=== PATIENT | female | born 1970 | race Caucasian/White ===

== ENCOUNTER → 2016-06-20 | Outpatient (CLI) | payer OTHER ==
[~2016-06-20] MED LIST: ACET325 PO; DIAZ5TAB PO; IBUP800 PO; PERC5TAB12 PO
--- NOTE | 2016-06-20 09:33 | RADRPT ---
EXAM DATE/TIME: 06/20/2016 08:28 [facility] COMPARISON: No previous studies available for comparison. INDICATIONS : Left knee pain for 3 weeks. MEDICAL HISTORY : None. SURGICAL HISTORY : None. ENCOUNTER: Initial ACUITY: 3 weeks PAIN SCORE: 4/10 LOCATION: Left anterior knee. FINDINGS: Four view examination of the left knee demonstrates no evidence of fracture or dislocation. Bony min eralization is normal. The articular surfaces are intact. The suprapatellar soft tissues have a nor mal configuration. CONCLUSION: Negative for fracture or dislocation. Followup in 7-10 days is suggested if symptoms persist. Zion Mccoy MD FACR on June 20, 2016 at 9:31 Board Certified Radiologist. This report was verified electronically.
== END ==
LOC: HRAD 08:05
PROVIDERS: ATTEND Family Medicine
DX: M25.562 Pain in left knee (principal)
CPT/HCPCS: 73564

== ENCOUNTER → 2016-06-29 | Outpatient (CLI) | payer OTHER ==
--- NOTE | 2016-06-29 13:05 | RADRPT ---
EXAM DATE/TIME: 06/29/2016 12:40 [facility] COMPARISON: No previous studies available for comparison. INDICATIONS : Left knee pain, fall. RADIATION DOSE: 7.29 CTDIvol (mGy) MEDICAL HISTORY : None SURGICAL HISTORY : None. ENCOUNTER: Initial ACUITY: 1 day PAIN SCALE: 5/10 LOCATION: Left Knee TECHNIQUE: Volumetric scanning of the knee was performed. Using automated exposure control and adjustment of th e mA and/or kV according to patient size, radiation dose was kept as low as reasonably achievable to obtain optimal diagnostic quality images. FINDINGS: There is no evidence for joint effusion. The distal femur, proximal tibia and fibula are intact. The patella is intact. There is reasonable visualization of the anterior and posterior cruciates which appear intact. CONCLUSION: Negative for fracture or joint effusion. MRI could be used to exclude meniscal injur y. Zion Mccoy MD FACR on June 29, 2016 at 13:01 Board Certified Radiologist. This report was verified electronically.
== END ==
LOC: HRAD 12:03
PROVIDERS: ATTEND Family Medicine
DX: S89.92XA Unspecified injury of left lower leg, initial encounter (principal); W19.XXXA Unspecified fall, initial encounter; M25.562 Pain in left knee
CPT/HCPCS: 73700

== ENCOUNTER → 2016-07-10 | Outpatient (CLI) | payer OTHER ==
--- NOTE | 2016-07-10 09:17 | RADRPT ---
EXAM DATE/TIME: 07/10/2016 08:52 [facility] COMPARISON: No previous studies available for comparison. INDICATIONS : Right foot/great toe pain after dropping garden pola on it. MEDICAL HISTORY : None. SURGICAL HISTORY : None. ENCOUNTER: Initial ACUITY: 4 - 6 days PAIN SCORE: 10/10 LOCATION: Right dorsal foot/great toe FINDINGS: Three view examination of the right foot demonstrates very minimal lucency along the cortex of the ba se of the distal phalanx great toe. Soft tissue swelling. The calcaneus is intact. Bony mineralizat ion is normal. CONCLUSION: 1. Nondisplaced tiny fracture along the base of the distal phalanx great toe only along the medial co rtex. Edd Meneses MD on July 10, 2016 at 9:12 Board Certified Radiologist. This report was verified electronically.
== END ==
LOC: HRAD 08:28
DX: S99.921A Unspecified injury of right foot, initial encounter (principal); X58.XXXA Exposure to other specified factors, initial encounter
CPT/HCPCS: 73630

== ENCOUNTER → 2017-02-05 | Outpatient (CLI) | payer OTHER ==
--- NOTE | 2017-02-05 09:56 | RADRPT ---
EXAM DATE/TIME: 02/05/2017 08:41 [facility] COMPARISON: US GUIDED NEEDLE BIOPSY LEFT, November 09, 2014, 14:03. INDICATIONS : Thyroid nodule. MEDICAL HISTORY : Fibroids. Thyroid nodule. SURGICAL HISTORY : Adenoidectomy. ENCOUNTER: Initial ACUITY: >1 year PAIN SCORE: 0/10 LOCATION: Bilateral neck MEASUREMENTS: RIGHT LOBE: 4.5 x 1.7 x 1.6 cm LEFT LOBE: 4.7 x 1.5 x 1.9 cm FINDINGS: RIGHT LOBE: There is mildly heterogeneous echotexture. The examination demonstrates a 0.5 x 0.3 x 0.5 cm solid no dule in the lower pole the gland. The vascularity is within normal limits. LEFT LOBE: There is mildly heterogeneous echotexture. The examination demonstrates a 1.1 x 1.3 x 1.6 cm nodule i n the lower pole the gland. ISTHMUS: The exam demonstrates a 0.5 x 0.3 x 0.4 cm solid nodule within the isthmus. CONCLUSION: 1. There are scattered solid nodule seen in the thyroid as described above. The largest nodule identi fied is in the mid aspect of the left lobe of the gland and measures 1.1 x 1.3 x 1.6 cm. Pietro Mccoy MD on February 05, 2017 at 9:52 Board Certified Radiologist. This report was verified electronically.
== END ==
LOC: HRAD 08:32
PROVIDERS: ATTEND Family Medicine
DX: E04.1 Nontoxic single thyroid nodule (principal)
CPT/HCPCS: 76536

== ENCOUNTER 2017-04-11 12:27 | Day surgery (SDC) | payer OTHER ==
[2017-04-11 13:13] VITALS: BP 162/82; PULSE 90; RESP 14; TEMP 97.6; O2SAT 98
[2017-04-11 14:05] VITALS: BP 149/98; PULSE 76; RESP 20; TEMP 97.6; O2SAT 98
--- NOTE | 2017-04-11 14:32 | PD.RAD ---
Post CT Procedure Prog Note Pre Procedure Diagnosis: (1) Recurrent pleural effusion on right Post Procedure Diagnosis: (1) Recurrent pleural effusion on right Procedure Date: Apr 11, 2017 Supervising Radiologist: Bret Merritt JR Anesthesia: Conscious Sedation Plan of Activity Patient to Unit: ROPU Patient Condition: Good See PACS Report for procedural detail/treatment Drainage Procedure Procedure 1 Imaging Guidance: CT Side: Right Procedure Type: Thoracentesis Fluid Description: Clear Findings: Successful right thoracentesis with 200 mL of straw-colored fluid obtained. No PTX on post images. Minimal residual fluid. Jr. René,Bret Mahan MD Apr 11, 2017 14:32
[2017-04-11 15:05] VITALS: BP 145/91; PULSE 67; RESP 20; TEMP 98.3; O2SAT 98
[2017-04-11 15:20] VITALS: BP 141/82; PULSE 73; RESP 16; O2SAT 97
[2017-04-11] MEDS ORDERED: LIDOCAINE HCL 1% 20 ML VIAL ONE ×2 (15:47)
--- NOTE | 2017-04-11 16:34 | RADRPT ---
EXAM DATE/TIME: 04/11/2017 12:48 [facility] COMPARISON: No previous studies available for comparison. EXTERNAL COMPARISON: [facility], US THYROID, Apr 09 2016. [facility], US THYROID, May 19, 2015. [facility], US THYROID, October 29, 2014. INDICATIONS : Left thyroid nodule. MEDICAL HISTORY : Anxiety. Uterine prolapse. Lipoid metabol disease. Hyperlipidemia. Thyroid nodule. SURGICAL HISTORY : Hysterectomy. Adenoidectomy. Left thyroid biopsy, 2014. ENCOUNTER: Subsequent ACUITY: 2 months PAIN SCORE: 0/10 LOCATION: Left neck solitary nodule of the thyroid ORGAN: Left thyroid lobe SPECIMENS: Five fine needle aspirate(s) submitted for pathologic evaluation. DEVICE: 22 gauge needle Post procedure scanning reveals no hematoma or other complication. The possibility does exist that the tissue obtained will be non-diagnostic. If the sample is non-winsome gnostic a repeat biopsy or surgical biopsy may need to be performed. TECHNIQUE: 1. Ultrasound guidance for needle biopsy. 2. Needle biopsy. The risks, benefits and alternatives to the procedure were explained and verbal and written consent w as obtained. The site was prepped in sterile fashion. Full sterile technique was used, including ca p, mask, sterile gloves and gown and a large sterile sheet. Hand hygiene and 2% chlorhexidine and/or betadine/alcohol prep was utilized per protocol for cutaneous antisepsis. The skin and subcutaneous tissues were infiltrated with local anesthetic solution. Sterile gel and sterile probe cover were u tilized for ultrasound guidance. With the patient on the ultrasound table, images were obtained. A needle was advanced into the identified target and the number of specimens as above obtained and patel bmitted for pathologic evaluation. The patient tolerated the procedure well and left the ultrasound suite in stable condition. CONCLUSION: Uncomplicated ultrasound guided needle biopsy of solitary left thyroid nodule. Bret Merritt Jr., MD on April 11, 2017 at 16:16 Board Certified Radiologist. This report was verified electronically.
== END 2017-04-11 15:26 | disposition home or self-care (01) ==
LOC: HRAD 12:27 → HRIP 12:30 → HRAD 15:26
PROVIDERS: ATTEND Family Medicine
DX: E04.1 Nontoxic single thyroid nodule (principal); J90 Pleural effusion, not elsewhere classified
CPT/HCPCS: 10022; 76942; 88172; 88173; 88177